=== PATIENT | male | born 1960 | race Caucasian/White ===

== ENCOUNTER 2024-01-18 15:05 | Outpatient (CLI) | payer BC, SELFPAY ==
--- NOTE | ~2024-01-18 | CT_ITS ---
CT of the Abdomen and Pelvis: Indication: Intra-abdominal swelling/mass Technique: 2.5 mm axial scans were obtained through the abdomen and pelvis following intravenous adm inistration of 100 cc of Omnipaque 350. Dose reduction technique was used on this scan by utilizing a utomated exposure control and iterative reconstruction technique. The dose-length product (DLP) was 9 64.29 mGy-cm. Findings: Scans through the lung bases are unremarkable. The liver, spleen, pancreas, adrenals and kidneys are within normal limits. Small gallstones are pres ent. There are atherosclerotic calcifications of the aorta. No lymphadenopathy. No bowel obstruction or bowel wall thickening. There is no evidence to suggest acute appendicitis. Sm all fat-containing umbilical hernia noted. Images through the pelvis were performed. Questionable urinary bladder wall thickening diffusely. Pro state gland is significantly enlarged. No ascites. Small fat-containing left inguinal hernia present. Impression: Suspected cystitis. Correlate with urinalysis. Cholelithiasis. Enlarged prostate gland. Small fat-containing left inguinal and umbilical hernias. Reviewed, dictated and finalized at location . Impression: Suspected cystitis. Correlate with urinalysis. Cholelithiasis. Enlarged prostate gland. Small fat-containing left inguinal and umbilical hernias.
[2024-01-18 15:20] LABS: Estimated Glomerular Filt Rate > 60
== END 2024-01-18 15:06 | disposition home or self-care (01) ==
LOC: MICIMG 15:07
PROVIDERS: PCP Family Medicine; Visit Provider Student in an Organized Health Care Education/Training Program
DX: K80.20 Calculus of gallbladder without cholecystitis without obstruction (principal); N40.0 Benign prostatic hyperplasia without lower urinary tract symptoms; K40.90 Unilateral inguinal hernia, without obstruction or gangrene, not specified as recurrent; K42.9 Umbilical hernia without obstruction or gangrene
CPT/HCPCS: 74177; Q9967